=== PATIENT | female | born 1990 | race Caucasian/White ===

== ENCOUNTER 2023-12-30 05:55 | Emergency (ER) | payer OTHER ==
[~2023-12-30] VITALS: Ht 180.3 cm; Wt 58.8 kg
[2023-12-30] MEDS: NS 1,000 ML IV ONE (07:42)
[2023-12-30 07:44] LABS: URINE PREG TEST NEGATIVE (NEGATIVE)
[2023-12-30 08:02] LABS: BASO % 0.1 % (0.0-1.0); HEMATOCRIT 40.4 % (36.0-47.0); HEMOGLOBIN 13.5 g/dl (12.0-15.5); LYMPH % 9.8 % (24.0-44.0); MEAN CORPUSCULAR HEMOGLOBIN 29.5 pg (27.0-33.0); MEAN CORPUSCULAR HGB CONC 33.4 g/dl (32.0-36.5); MEAN CORPUSCULAR VOLUME 88.4 fl (80.0-96.0); MONO # 1.4 10^3/uL (0.0-0.8); MONO % 14.1 % (2.0-8.0); NEUTROPHILS # 7.4 10^3/uL (1.5-8.5); NEUTROPHILS % 75.4 % (36.0-66.0); PLATELET COUNT, AUTOMATED 187 10^3/uL (150-450); RED BLOOD COUNT 4.57 10^6/uL (4.00-5.40); WHITE BLOOD COUNT 9.8 10^3/uL (4.0-10.0)
[2023-12-30 08:33] LABS: CALCIUM LEVEL 9.2 MG/DL (8.5-10.1); CREATININE FOR GFR 1.42 MG/DL (0.55-1.30); GLOMERULAR FILTRATION RATE 45.6 (>60); POTASSIUM SERUM 3.3 MMOL/L (3.5-5.1)
[2023-12-30] MEDS: POTASSIUM CHLORIDE 10MEQ SR TABLET PO ONE (08:55)
[2023-12-30 09:45] VITALS: O2SAT 98
[2023-12-30 09:54] VITALS: BP 106/70; TEMP 97.2
== END 2023-12-30 10:03 | disposition home or self-care (01) ==
LOC: M ED 05:55
DX: N10 Acute pyelonephritis (principal)

== ENCOUNTER 2025-07-30 09:18 | Emergency (ER) | payer OTHER ==
[~2025-07-30] VITALS: Ht 180.3 cm; Wt 55.7 kg
[2025-07-30] MEDS ORDERED: dayquil PO (09:33)
[2025-07-30 09:42] VITALS: TEMP 98.7
[2025-07-30] MEDS: NS (Normal Saline) 0.9% 1,000 ML IV ONE (10:26)
[2025-07-30 10:48] LABS: BASO # 0.0 10^3/uL (0.0-0.2); BASO % 0.1 % (0.0-1.0); EOS # 0.0 10^3/uL (0.0-0.5); EOS % 0.6 % (0.0-3.0); LYMPH # 1.0 10^3/uL (1.5-5.0); LYMPH % 15.1 % (24.0-44.0); MONO # 0.4 10^3/uL (0.0-0.8); MONO % 6.1 % (2.0-8.0); NEUTROPHILS # 5.3 10^3/uL (1.5-8.5); NEUTROPHILS % 77.8 % (36.0-66.0); PLATELET COUNT, AUTOMATED 241 10^3/uL (150-450)
[2025-07-30 11:16] LABS: CALCIUM LEVEL 9.0 MG/DL (8.5-10.1); CARBON DIOXIDE LEVEL 27 MMOL/L (20-31); CHLORIDE LEVEL 104 MMOL/L (98-107); CK-MB VALUE MASS < 1.0 NG/ML (<3.6); CREATININE FOR GFR 0.65 MG/DL (0.55-1.30); GLOMERULAR FILTRATION RATE > 90.0 (>60); MAGNESIUM LEVEL 1.9 MG/DL (1.8-2.4); POTASSIUM SERUM 3.7 MMOL/L (3.5-5.1); SODIUM LEVEL 142 MMOL/L (136-145)
[2025-07-30 11:20] LABS: FREE T4 1.20 NG/DL (0.89-1.76)
[2025-07-30 11:21] LABS: CPK CREATINE PHOSPHOKINASE 57 U/L (34-145)
[2025-07-30 13:00] VITALS: BP 113/61; O2SAT 99
[2025-07-30 13:22] LABS: CK-MB VALUE MASS < 1.0 NG/ML (<3.6); CPK CREATINE PHOSPHOKINASE 49 U/L (34-145)
== END 2025-07-30 13:45 | disposition left against medical advice (07) ==
LOC: EDBD 09:18 → M ED 09:18
DX: R55 Syncope and collapse (principal); Z53.9 Procedure and treatment not carried out, unspecified reason; F17.290 Nicotine dependence, other tobacco product, uncomplicated; F12.10 Cannabis abuse, uncomplicated